=== PATIENT | male | born 1995 | race Caucasian/White ===

== ENCOUNTER 2022-10-17 08:13 | Emergency (ER) | payer BC, MEDICAID, SELFPAY ==
[2022-10-17 08:20] VITALS: BP 168/106; PULSE 86; RESP 18; O2SAT 96
--- NOTE | 2022-10-17 08:35 | W.ED.BACK ---
HPI - Back Pain/Injury General: Chief Complaint: Back Pain/Injury Stated Complaint: back pain Time Seen by Provider: 10/17/22 08:29 Source: patient Mode of arrival: ambulatory Limitations: no limitations History of Present Illness: Patient is a 27-year-old male who presents to ED today with a complaint of right-sided back pain that initially began 2 to 3 days ago while he was at work and shoveling heavy material. Patient states yesterday he was then moving heavy things in his apartment and states this morning pain was worse and he was having trouble ambulating and getting out of bed. He states pain seems to radiate down the right posterior aspect of his leg. He denies saddle anesthesia or bowel or bladder dysfunction. MD elicited complaint: back pain Onset (ago): day(s) Timing: constant Severity: severe Pain scale (0-10): 8 Similar Symptoms Previously: No Location: right lower back Radiation: right leg below the knee Exacerbating factors: movement and walking Relieving factors: none Associated symptoms: Reports no associated symptoms and difficulty walking; Deny abdominal pain, chills, dysuria, fatigue, fever(s) or hematuria Work related injury: Yes Review of Systems Const: Denies: fever(s), chills, body aches, fatigue or malaise Card: Denies: chest pain Resp: Denies: dyspnea GI: Denies: abdominal pain : Denies: flank pain, dysuria, urinary hesitancy or hematuria Musc: Reports: back pain; Denies: neck pain, extremity pain, extremity swelling, joint pain or joint swelling Skin/Breast: Denies: rash Neuro: Reports: difficulty walking; Denies: headache(s), numbness in extremities, weakness in extremities, sensory changes or dizziness Physical Exam Const: COMMON NORMALS: no acute distress, patient oriented x3, no limitations and alert GENERAL APPEARANCE: cooperative NUTRITIONAL APPEARANCE: obese morbidly obese ORIENTATION/CONSCIOUSNESS: Yes awake, Yes oriented to person, Yes oriented to place and Yes oriented to time HENMT: COMMON NORMALS: normocephalic and atraumatic HEAD & SCALP: normal to inspection, normocephalic and atraumatic Resp: COMMON NORMALS: normal respiratory effort Cardio: COMMON NORMALS: regular rate and regular rhythm RATE: regular rate RHYTHM: regular rhythm GI: COMMON NORMALS: Normal to inspection, nondistended, normoactive bowel sounds present, Soft to palpation and non-tender PALPATION: Yes Soft to palpation : COMMON NORMALS: Yes no CVA tenderness BLADDER/KIDNEY EXAM: Yes no CVA tenderness Back/Pelvis: COMMON NORMALS: no CVA tenderness, thoracic and lumbar spine normal to inspection, no thoracic nor lumbar tenderness and straight leg raise negative bilaterally THORACIC SPINE/UPPER BACK: Yes normal to inspection, No thoracic spinal tenderness, No paraspinal muscle tenderness and No paraspinal muscle spasm LUMBAR SPINE/LOWER BACK: Yes normal to inspection, Yes ROM limited, Yes pain with ROM, No lumbar spinal tenderness, Yes paraspinal muscle tenderness Lumbar paraspinal muscle tenderness: right, No paraspinal muscle spasm, No mass present and Yes straight leg raise negative bilaterally PELVIS: Yes buttocks normal SACROILIAC JOINTS: Yes SI joints normal SACRUM: no tenderness COCCYX: no tenderness Extremity: COMMON NORMALS: normal to inspection, full ROM, capillary refill normal, no joint enlargement, no clubbing, cyanosis or edema, no calf tenderness and no pedal edema GENERAL: Yes normal exam except as noted Neuro: COMMON NORMALS: patient oriented x3, moves all extremities, no focal motor deficits and no sensory deficits noted SENSORIUM/ORIENTATION: Yes alert, Yes oriented to person, Yes oriented to place and Yes oriented to time MOTOR EXAM: 5/5 motor strength present throughout DEEP TENDON REFLEXES: Right patellar reflex intensity grade: 2+ and Left patellar reflex intensity grade: 2+ Skin: COMMON NORMALS: no rashes or lesions noted GENERAL SKIN EXAM: no rashes or lesions noted Course Vital Signs: Vital signs: Vital Signs Pulse Rate 86 10/17/22 08:20 Respiratory Rate 18 10/17/22 08:20 Blood Pressure 168/106 10/17/22 08:20 Pulse Oximetry 96 10/17/22 08:20 Oxygen Delivery Me thod 10/17/22 08:20 MDM - Back Pain/Injury Medical Decision Making Patient feeling better after IM meds given here. He states he feels comfortable going home at this time. Will place on NSAIDS, steroids, muscle relaxers. Recommend he follow-up with his primary care provider in 1 week if symptoms do not seem to be improving. He has no acute neurologic deficits here. Discharge Plan Discharge Patient Disposition: Home Clinical Impression: Lumbar radiculopathy Condition: Stable Prescriptions: New methocarbamol 500 mg tablet 1,000 mg PO Q8H Qty: 30 0RF ibuprofen 800 mg tablet 800 mg PO Q8H PRN (Reason: pain) Qty: 20 0RF Medrol (Anders) 4 mg tablets,dose pack See Rx Instructions .ROUTE .COMPLEX Qty: 21 0RF Rx Instructions: orally per package directions Discharge Orders: Discharge ED (Routine); Ordered 10/17/22 Ordered By: Heidy Ya Coding Level of Care Code ED Progress Developer for Morelia Salguero
[2022-10-17] MEDS: ketorolac 60 mg/2 mL INJ IM (10:19)
[2022-10-17] MEDS: orphenadrine 30 mg/mL Inj 2 mL 60 MG IM (10:19)
[2022-10-17] MEDS: HYDROmorphone 1 mg/mL INJ 1 mL 0.5 MG IM (10:20)
[2022-10-17] MEDS: dexamethasone 10 mg/mL INJ IM (10:20)
[2022-10-17 11:23] VITALS: BP 142/70; PULSE 87; RESP 18; O2SAT 98
--- NOTE | 2022-10-28 15:04 | DCPLANNER ---
Addendum entered by Nancy Bowles 10/28/22 15:05: Patient was called due to no primary care physician - patient stated that he sees Pasquale Nolen for primary care. Original Note: 10.26.22 - patient was called due to no primary care physician - patient declined offer to help to get patient established.
== END 2022-10-17 11:27 | disposition home or self-care (01) ==
PROVIDERS: Emergency Provider Physician Assistant
DX: M54.16 Radiculopathy, lumbar region (principal)
CPT/HCPCS: 96372; 99284; J1100; J1170; J1885; J2360